=== PATIENT | female | born 1930 | race Caucasian/White ===

== ENCOUNTER 2017-03-20 09:45 | Emergency (ER) | payer BC ==
[~2017-03-20] VITALS: Ht 152.4 cm; Wt 57.6 kg
[2017-03-20 09:48] VITALS: BP 146/78; PULSE 85; RESP 16; TEMP 97.6; O2SAT 96
--- NOTE | 2017-03-20 09:50 | NUR ---
Patient to ER bed 2 to gown for evaluation. Side rails up. Report given to BRITTANI QUINTERO.
--- NOTE | 2017-03-20 09:55 | NUR ---
Patient AAOx4, no acute distress noted. Patient states she "fell flat on her bottom" from walking with her walker yesterday, and states she was able to pull herself up. Patient c/o 8/10 pain in lower back area and states worse pain on left lower back. Denies lapse of consciousness. Denies any head/neck injury. No bruises noted. No obvious deformities noted. No other complaints/injuried per patient or noted.
--- NOTE | 2017-03-20 10:00 | NUR ---
Dr. Angel at bedside examining patient.
[2017-03-20] MEDS ORDERED: NS 500 ML IV ONE (10:45)
[2017-03-20] MEDS ORDERED: KETOROLAC TROMETHAMINE 15 MG VIAL IVP ONE (10:45)
[2017-03-20] MEDS ORDERED: ONDANSETRON HCL 4 MG/2 ML VIAL IVP ONE (10:45)
[2017-03-20] MEDS ORDERED: MORPHINE 2 MG/ML INJ. SYRINGE IVP ONE (10:45)
[2017-03-20 10:57] LABS: EOSINOPHILS % (AUTO) 0.6 % (0.0-4.0); LYMPHOCYTES # (AUTO) 0.8 K/uL (1.0-5.5); MEAN CORPUSCULAR HEMOGLOBIN 31 pg (27-31); MONOCYTES # (AUTO) 0.4 K/uL (0.0-1.0); MONOCYTES % (AUTO) 4.5 % (1.7-9.3); NEUTROPHILS # (AUTO) 6.8 K/uL (1.8-7.7)
[2017-03-20 11:03] LABS: BASOPHILS # (AUTO) 0.1 K/uL (0.0-0.2); BASOPHILS % (AUTO) 1.8 % (0.0-2.0); HEMATOCRIT 37.2 % (36-48); HEMOGLOBIN 12.5 g/dL (12.0-16.0); LYMPHOCYTES % (AUTO) 9.3 % (20.5-51.5); MEAN CORPUSCULAR HGB CONC 34 % (32-36); MEAN CORPUSCULAR VOLUME 92 fL (79.0-98.0); NEUTROPHILS % (AUTO) 83.8 % (40.0-70.0); PLATELET COUNT (AUTO) 206 K/uL (130-430); RED BLOOD CELL COUNT(AUTO) 4.04 MIL/uL (4.2-6.2); RED CELL DISTRIBUTION WIDTH 12.9 % (9.0-15.0); WHITE BLOOD COUNT (AUTO) 8.1 K/uL (4.8-10.8)
--- NOTE | 2017-03-20 11:10 | NUR ---
Patient off unit to radiology.
[2017-03-20 11:11] LABS: INR 1.2 (0.8-1.2); PROTHROMBIN TIME 12.6 SECS (9.5-12.5)
[2017-03-20 11:16] LABS: ANION GAP 5 (5-15); CALCIUM 9.3 mg/dL (8.4-11.0); CHLORIDE 102 mmol/L (98-107); CREATININE 1.03 mg/dL (0.55-1.30); GLUCOSE 109 mg/dL (70-99); POTASSIUM 4.3 mmol/L (3.5-5.1); SODIUM SERUM 135 mmol/L (136-145); UREA NITROGEN, BLOOD 12 mg/dL (8-21)
--- NOTE | 2017-03-20 11:20 | NUR ---
Patient return to unit. No acute distress noted.
[2017-03-20 11:21] LABS: ALANINE AMINOTRANSFERASE 23 U/L (12-78); ALBUMIN 3.1 g/dL (3.4-4.8); ASPARTATE AMINOTRANSFERASE 30 U/L (10-37); TOTAL BILIRUBIN 0.4 mg/dL (0.0-1.0); TOTAL PROTEIN, SERUM 7.7 g/dL (6.4-8.3)
--- NOTE | 2017-03-20 11:45 | NUR ---
PT MEDCIATED FOR PAIN.PT TOLERATED WELL.CONTINUING TO MONITOR.
--- NOTE | 2017-03-20 12:00 | NUR ---
Dr. Angel at bedside examining patient.
--- NOTE | 2017-03-20 12:50 | NUR ---
Patient ambulated to restroom and back to bed with walker with good speed. Patient tolerated well. Denies any dizziness. Addendum: 03/20/[address] Jeanne mathew.
--- NOTE | 2017-03-20 13:00 | NUR ---
Shira cardoza in ED - 03/20/17 at 1459 by [email or web address] Patient states she wants medication prior to discharge. Dr. Angel aware.
--- NOTE | 2017-03-20 13:30 | NUR ---
Patient states she wants medication prior to discharge. Dr. Jeanne mathew.
[2017-03-20] MEDS ORDERED: DEXAMETHASONE SOD PHOSPHATE 4 MG/ML VIAL IM ONE (14:30)
[2017-03-20 14:45] VITALS: BP 146/78; PULSE 85; RESP 16; TEMP 97.6; O2SAT 96
--- NOTE | 2017-03-20 14:45 | NUR ---
Patient given written and verbal discharge instructions and verbalizes understanding. ER MD discussed with patient the results and treatment provided. Patient in stable condition. ID arm band removed. IV catheter removed intact and dressing applied, no active bleeding. Rx of ibuprofen given. Patient educated on pain management and to follow up with PMD. Pain Scale 3/10. Patient's friend at bedside for pickup with patient's own walker. Opportunity for questions provided and answered.
[2017-03-21] MEDS ORDERED: TRAM50TA92 PO (09:01)
[2017-03-21] MEDS ORDERED: LATA2.5D6 OP (09:01)
[2017-03-21] MEDS ORDERED: LEVO25TA7 PO (09:01)
[2017-03-21] MEDS ORDERED: LORA1TAB PO (09:01)
[2017-03-21] MEDS ORDERED: LISI-600 PO (09:01)
[2017-03-21] MEDS ORDERED: OMEP20CA10 PO (09:01)
== END 2017-03-20 14:45 | disposition home or self-care (01) ==
LOC: SED 09:45
DX: S22.068A Other fracture of T7-T8 thoracic vertebra, initial encounter for closed fracture (principal); S22.078A Other fracture of T9-T10 vertebra, initial encounter for closed fracture; S22.088A Other fracture of T11-T12 vertebra, initial encounter for closed fracture; M54.5 Low back pain; G89.29 Other chronic pain; K21.9 Gastro-esophageal reflux disease without esophagitis; I10 Essential (primary) hypertension; Z88.2 Allergy status to sulfonamides; Z88.6 Allergy status to analgesic agent; W18.30XA Fall on same level, unspecified, initial encounter; Y93.01 Activity, walking, marching and hiking; Y99.8 Other external cause status; Y92.89 Other specified places as the place of occurrence of the external cause
CPT/HCPCS: 36415; 72128; 72131; 80053; 85025; 85610; 85730; 96361; 96372; 96374; 96375; 99285; J1100; J1885; J2270; J2405; J7040

== ENCOUNTER 2017-03-21 06:59 | Emergency (ER) | payer BC ==
[~2017-03-21] VITALS: Ht 154.9 cm; Wt 77.1 kg
[2017-03-21 07:00] VITALS: BP 191/100; PULSE 85; RESP 19; TEMP 97.6; O2SAT 97
--- NOTE | 2017-03-21 07:00 | NUR ---
BROUGHT IN BY EMILY BAXTER AND PLACED IN BED #6, TRIAGED. WILL ASSUME CARE
--- NOTE | 2017-03-21 07:02 | NUR ---
PT STATES THAT SHE WAS HERE YESTERDAY FOR FALL WITH BACK PAIN, NOW STATES GENERALIZED ABDOMINAL PAIN WITH NAUSEA/VOMITING. PT STATES SHE LIVES IN HER TOWNHOUSE WITH 24 HOUR CAREGIVERS, CAREGIVER AT BEDSIDE.
[2017-03-21] MEDS ORDERED: ONDANSETRON HCL 4 MG/2 ML VIAL IVP ONE (07:15)
[2017-03-21] MEDS ORDERED: MORPHINE 2 MG/ML INJ. SYRINGE IVP ONE (07:15)
--- NOTE | 2017-03-21 07:38 | NUR ---
TAKEN TO RADIOLOGY VIA ELISSA
[2017-03-21 07:47] LABS: ANION GAP 8 (5-15); CALCIUM 9.6 mg/dL (8.4-11.0); CHLORIDE 102 mmol/L (98-107); CREATININE 1.12 mg/dL (0.55-1.30); GLUCOSE 161 mg/dL (70-99); POTASSIUM 4.3 mmol/L (3.5-5.1); SODIUM SERUM 137 mmol/L (136-145); UREA NITROGEN, BLOOD 21 mg/dL (8-21)
[2017-03-21 07:54] LABS: ALANINE AMINOTRANSFERASE 28 U/L (12-78); ALBUMIN 3.4 g/dL (3.4-4.8); ASPARTATE AMINOTRANSFERASE 36 U/L (10-37); LIPASE 60 U/L (73-393); TOTAL BILIRUBIN 0.5 mg/dL (0.0-1.0); TOTAL PROTEIN, SERUM 8.4 g/dL (6.4-8.3)
[2017-03-21 07:56] LABS: BASOPHILS # (AUTO) 0.2 K/uL (0.0-0.2); BASOPHILS % (AUTO) 1.3 % (0.0-2.0); HEMATOCRIT 39.6 % (36-48); HEMOGLOBIN 13.1 g/dL (12.0-16.0); LYMPHOCYTES # (AUTO) 0.6 K/uL (1.0-5.5); LYMPHOCYTES % (AUTO) 5.2 % (20.5-51.5); MEAN CORPUSCULAR HEMOGLOBIN 31 pg (27-31); MEAN CORPUSCULAR HGB CONC 33 % (32-36); MEAN CORPUSCULAR VOLUME 92 fL (79.0-98.0); MONOCYTES # (AUTO) 0.4 K/uL (0.0-1.0); MONOCYTES % (AUTO) 3.6 % (1.7-9.3); NEUTROPHILS # (AUTO) 10.4 K/uL (1.8-7.7); NEUTROPHILS % (AUTO) 89.9 % (40.0-70.0); PLATELET COUNT (AUTO) 252 K/uL (130-430); RED BLOOD CELL COUNT(AUTO) 4.29 MIL/uL (4.2-6.2); RED CELL DISTRIBUTION WIDTH 12.9 % (9.0-15.0)
[2017-03-21 07:57] LABS: WHITE BLOOD COUNT (AUTO) 11.6 K/uL (4.8-10.8)
--- NOTE | 2017-03-21 07:59 | NUR ---
PT RETURNED FROM RADIOLOGY VIA GURNEY AND PLACED BACK TO BED #6, CAREGIVER AT BEDSIDE.
--- NOTE | 2017-03-21 08:51 | NUR ---
# 14 FR In and Out catheter with use of sterile technique. Immediate return of 200 ml YELLOW CLEAR urine noted. Urine sample collected and sent to lab. Pt tolerated procedure WELL. Patient unable to toilet self.
--- NOTE | 2017-03-21 08:59 | NUR ---
Rectal exam performed by DR LEE with IRENE HAWK at bedside during procedure. Patient tolerated well.
[2017-03-21] MEDS ORDERED: TRAM50TA92 PO (09:01)
[2017-03-21] MEDS ORDERED: LEVO25TA7 PO (09:01)
[2017-03-21] MEDS ORDERED: LISI-600 PO (09:01)
[2017-03-21] MEDS ORDERED: OMEP20CA10 PO (09:01)
[2017-03-21] MEDS ORDERED: LORA1TAB PO (09:01)
[2017-03-21] MEDS ORDERED: LATA2.5D6 OP (09:01)
--- NOTE | 2017-03-21 09:01 | NUR ---
Medication reconciliation completed with information provided by PATIENT. Any prior medication reconciliation on file was reviewed and corrected.
[2017-03-21 09:07] LABS: BILIRUBIN,URINE NEGATIVE (NEGATIVE); BLOOD, URINE 3+ (NEGATIVE); CLARITY/URINE HAZY (CLEAR); COLOR,URINE YELLOW (YELLOW); GLUCOSE,URINE NEGATIVE (NEGATIVE); KETONES,URINE 1+ (NEGATIVE); LEUKOCYTE ESTERASE ,URINE NEGATIVE (NEGATIVE); NITRITE, URINE POSITIVE (NEGATIVE); PH,URINE 5.5 (5.0-8.0); PROTEIN URINE 1+ (NEGATIVE); UROBILINOGEN,URINE 0.2 (0.2-1.0)
[2017-03-21 09:14] LABS: BACTERIA,URINE MANY /HPF (None Seen); MUCUS,URINE 1+ /LPF (None Seen); WBC,URINE 0-3 /HPF (0-3)
[2017-03-21] MEDS ORDERED: NACL 0.9% 1,000 ML IV ONE (09:15)
--- NOTE | 2017-03-21 09:39 | NUR ---
DR NUGENT AT BEDSIDE SPEAKING WITH PT.
[2017-03-21 09:45] VITALS: TEMP 98
--- NOTE | 2017-03-21 10:00 | NUR ---
DR NUGENT STATES SHE TEXTED THE [facility]ING [facility] WAITER/WAITRESS AND WILL WAIT BACK FOR SNF PLACEMENT
--- NOTE | 2017-03-21 10:08 | NUR ---
HCP/PA: Called MARIAH Stovall made her aware of discharge to SNF. Sia working on SNF placement and will keep DCP and ER nursing staff aware.
--- NOTE | 2017-03-21 10:42 | NUR ---
DIRECTOR TELEVISION NEWS HERE TO SEE PT. AWAITING FURTHER ORDERS
--- NOTE | 2017-03-21 11:17 | NUR ---
Spoke with Monae BARNARD CM who states [facility] ETA 1200, for transfer to [facility] [address] [phone]. Number for report is .
[2017-03-21 11:57] VITALS: BP 147/71; PULSE 77; RESP 19; O2SAT 99
--- NOTE | 2017-03-21 11:57 | NUR ---
DISCHARGED TO [facility]. PT UNDERSTANDING WITH TRANSFER.
[2017-03-21] MEDS ORDERED: ONDANSETRON HCL 4 MG/2 ML VIAL ONE (12:14)
== END 2017-03-21 11:57 | disposition other institution (70) ==
LOC: SED 06:59
DX: E86.0 Dehydration (principal); K44.9 Diaphragmatic hernia without obstruction or gangrene; N39.0 Urinary tract infection, site not specified; S32.018G Other fracture of first lumbar vertebra, subsequent encounter for fracture with delayed healing; S22.078G Other fracture of T9-T10 vertebra, subsequent encounter for fracture with delayed healing; K21.9 Gastro-esophageal reflux disease without esophagitis; I10 Essential (primary) hypertension; Z88.2 Allergy status to sulfonamides; Z88.6 Allergy status to analgesic agent; W01.0XXD Fall on same level from slipping, tripping and stumbling without subsequent striking against object, subsequent encounter
CPT/HCPCS: 36415; 71010; 74176; 80053; 81000; 83690; 85025; 87086; 96361; 96374; 96375; 99285; J2270; J2405; J7030